=== PATIENT | female | born 1945 | race Caucasian/White ===

== ENCOUNTER 2020-11-15 03:12 | Observation (INO) ==
[2020-11-15] MEDS ORDERED: Ondansetron 4 MG/2 ML VIAL IVP PRN (05:22)
[2020-11-15] MEDS ORDERED: Acetaminophen 325 MG TABLET PO PRN (05:22)
[2020-11-15] MEDS ORDERED: Melatonin 3 MG TABLET PO PRN (05:22)
[2020-11-15] MEDS ORDERED: Naloxone 0.4 MG/ML INJ IVP PRN (05:22)
[2020-11-15] MEDS ORDERED: 0.9 % Sodium Chloride 250 ML IVC SCH (05:30)
[2020-11-15 06:36] LABS: Basophils % 0.3 %; Eosinophils % 0.2 %; Immature Granulocytes % 0.3 % (0-4); Lymphocytes # 1.3 K/mcL (0.6-4.6); Lymphocytes % 20.4 %; Mean Corpuscular HGB Conc 27.1 g/dL (31.6-35.5); Mean Corpuscular Hemoglobin 22.4 pg (28.0-33.3); Mean Corpuscular Volume 82.8 fL (83.0-100.0); Mean Platelet Volume 9.4 fL (9.4-12.4); Monocytes # 0.6 K/mcL (0.0-1.3); Neutrophils # 4.2 K/mcL (1.6-8.9); Nucleated Red Blood Cells 0.7 /100 WBC (0); Platelet Count 288 K/mcL (140-400); Red Blood Count 1.74 M/mcL (3.82-4.97); Red Cell Distribution Width 18.8 % (11.5-14.5); Segmented Neutrophils % 68.8 %; White Blood Count 6.1 K/mcL (4.3-11.1)
[2020-11-15 06:44] LABS: Hematocrit 14.4 % (35.3-44.9); Hemoglobin 3.9 g/dL (11.5-15.4)
[2020-11-15] MEDS: Gabapentin 100 MG CAPSULE PO SCH ×3 (08:08→22:11)
[2020-11-15] MEDS: Venlafaxine XR (24 HR) 37.5 MG CAP.ER.24H PO SCH (08:08)
[2020-11-15 17:30] LABS: Hematocrit 21.7 % (35.3-44.9); Hemoglobin 6.3 g/dL (11.5-15.4)
[2020-11-16 07:43] LABS: Alanine Aminotransferase 6 Units/L (7-52); Albumin/Globulin Ratio 1.4 (1.1-2.2); Alkaline Phosphatase 55 Units/L (34-104); Aspartate Amino Transferase 10 Units/L (13-39); BUN/Creatinine Ratio 23 (6-26); Bilirubin,Total 0.4 mg/dL (0.3-1.0); Blood Urea Nitrogen 17 mg/dL (8-23); Calcium 8.1 mg/dL (8.6-10.3); Carbon Dioxide 21 mEq/L (23-29); Chloride 116 mEq/L (98-107); Globulin 2.1 g/dL (2.4-3.5); Glucose 88 mg/dL (70-105); Magnesium 2.1 mg/dL (1.6-2.6); Osmolality,Calculated 297 (280-300); Potassium 3.8 mEq/L (3.5-5.1); Sodium 143 mEq/L (136-145); Total Protein 5.1 g/dL (6.4-8.9); eGFR For African Americans > 60 (> 60); eGFR For Non-African Americans > 60 (> 60)
[2020-11-16 07:45] VITALS: RESP 18; O2SAT 98
[2020-11-16] MEDS: Gabapentin 100 MG CAPSULE PO SCH ×2 (08:32→15:52)
[2020-11-16] MEDS: Venlafaxine XR (24 HR) 37.5 MG CAP.ER.24H PO SCH (08:32)
[2020-11-16 09:15] LABS: Hematocrit 24.6 % (35.3-44.9); Hemoglobin 7.3 g/dL (11.5-15.4)
[2020-11-16] MEDS ORDERED: Iron Sucrose Complex 200 MG in 0.9 % Sodium Chloride 100 ML IVPB ONE (11:00)
[2020-11-16 11:37] LABS: % Iron Saturation 3 % (15-50); Iron 14 mcg/dL (50-170); Transferrin 286 mg/dL (203-362)
[2020-11-16 12:02] LABS: Folate 17.5 ng/mL (3.0-16.0)
[2020-11-16 12:04] VITALS: BP 169/70; PULSE 92; TEMP 98.2
[2020-11-16] MEDS ORDERED: Cyanocobalamin (B-12) 1,000 MCG TABLET PO SCH (13:15)
== END 2020-11-16 16:30 | disposition home or self-care (01) ==
LOC: INPGRE
PROVIDERS: ADMIT Family Medicine; ATTEND Family Medicine